=== PATIENT | male | born 1980 | race Two or more races ===

== ENCOUNTER 2017-10-11 17:55 | Emergency (ER) | payer BC ==
[~2017-10-11] VITALS: Ht 177.8 cm; Wt 95.3 kg
--- NOTE | 2017-10-11 18:20 | NUR ---
PATIENT BROUGHT IN BY HIS FRIENDS FOR 'PASSING OUT" SEVERAL TIMES TODAY AFTER DRINKING A "[employer] DRUG THAT STARTS WITH G" MIXED IN ALCOHOL. PATIENT IS NOT AWAKE BUT AROUSES TO TOUCH AND OPENS HIS EYES. PLACED ON A CONTINUOUS TECHNOLOGY DIRECTOR. 12 LEAD EKG DONE. BREATHING WAS IRREGULAR SO WE PLACED A NON REBREATHER ON HIM AND BREATHING HAS IMPROVED. SP02 > 98%. BP WNL.
--- NOTE | 2017-10-11 19:04 | NUR ---
PATIENT STILL SLEEPING BUT OPENS HIS EYES INTERMITTENTLY. ON A MONITOR. 3 MALE FRIENDS AT BEDSIDE. HANDOFF REPORT GIVEN TO ASTRID HIGGINS.
--- NOTE | 2017-10-11 19:10 | NUR ---
PATIENT IS NOT AWAKE, AROUSES TO TOUCH. BREATHIN IS EVEN AND UNLABORED. CONTINUES ON NON REBREATHER MASK SATURATION 98%. WILL MONITOR.
--- NOTE | 2017-10-11 19:39 | NUR ---
PATIENT IS AWAKE, ALERT AND ORIENTED. BREATHING IS EVEN AND UNLABORED ON ROOM AIR, SATURATION IS 98%. PATIENT IS SITTING UP ON EDGE OF BED, DENIES ANY SYMPTOMS AT THIS TIME.
[2017-10-11 19:42] VITALS: BP 128/89
--- NOTE | 2017-10-11 19:42 | NUR ---
Patient discharged to home in stable conditon. Written and verbal after care instructions given. Patient verbalizes understanding of instructions. PATIENT LEFT WITH STEADY GAIT.
== END 2017-10-11 19:43 | disposition home or self-care (01) ==
LOC: ER 17:55
DX: R55 Syncope and collapse (principal); I25.2 Old myocardial infarction
CPT/HCPCS: 93005; 99283; A4663

== ENCOUNTER 2017-12-31 21:55 | Inpatient (IN) | payer BC, OTHER ==
[~2017-12-31] VITALS: Ht 177.8 cm; Wt 90.7 kg
[2017-12-31 01:55] VITALS: BP 118/80
--- NOTE | 2017-12-31 22:13 | NUR ---
Dr Maurice speaking with DR Castro cardiology
[2017-12-31] MEDS ORDERED: AMIODARONE HCL IV 900 MG in IV DEXTROSE 5% 482 ML IV PRN (22:30)
[2017-12-31] MEDS ORDERED: AMIODARONE HCL IV 150 MG in IV DEXTROSE 5% 100 ML IV ONE (22:30)
[2017-12-31] MEDS ORDERED: AMIODARONE HCL 150 MG/3 ML VIAL IV ONE ×2 (22:34→22:36)
[2017-12-31 22:46] LABS: BASOPHILS # (AUTO) 0.1 K/uL (0.0-8.0); BASOPHILS % (AUTO) 0.9 % (0.0-2.0); EOSINOPHILS # (AUTO) 0.2 K/uL (0.0-0.7); EOSINOPHILS % (AUTO) 1.7 % (0.0-7.0); HEMATOCRIT 47.2 % (36.7-47.1); LYMPHOCYTES # (AUTO) 3.3 K/uL (20.0-40.0); LYMPHOCYTES % (AUTO) 30.7 % (20.5-51.5); MEAN CORPUSCULAR HEMOGLOBIN 31.7 uug (23.8-33.4); MEAN CORPUSCULAR HGB CONC 34 g/dL (32.5-36.3); MEAN CORPUSCULAR VOLUME 93.4 fL (73.0-96.2); MONOCYTES # (AUTO) 1.3 K/uL (2.0-10.0); MONOCYTES % (AUTO) 12.6 % (0.0-11.0); NEUTROPHILS # (AUTO) 5.7 K/uL (1.8-8.9); NEUTROPHILS % (AUTO) 54.1 % (38.5-71.5); PLATELET COUNT (AUTO) 409 K/uL (152-348); RED BLOOD CELL COUNT(AUTO) 5.05 MIL/uL (4.06-5.63); WHITE BLOOD COUNT (AUTO) 10.6 K/uL (3.6-10.2)
[2017-12-31 22:51] LABS: CREATININE 1.3 mg/dL (0.6-1.3); POTASSIUM 4.1 mmol/L (3.5-5.1)
--- NOTE | 2017-12-31 23:01 | NUR ---
AMIODARONE IV DRIP STARTED AT PROTOCOL SPECIFICATIONS
[2017-12-31 23:08] LABS: BILIRUBIN,TOTAL 0.6 mg/dL (0.2-1.0); TOTAL PROTEIN, SERUM 8.2 g/dL (6.4-8.2)
--- NOTE | 2017-12-31 23:19 | NUR ---
PT IN BED. PT IS AAOX4. PT IS CALM AND COOPERATIVE. AMIODARONE IV DRIP RUNNING. NO SIGNS OF DISTRESS WITNESSED AT THIS TIME.
[2017-12-31] MEDS ORDERED: LORAZEPAM 2 MG/1 ML VIAL IV ONE (23:47)
[2017-12-31] MEDS ORDERED: LORAZEPAM 2 MG/1 ML VIAL ONE (23:48)
[2018-01-01] VITALS (13 sets, daily range): BP systolic 94–126; BP diastolic 61–79
--- NOTE | 2018-01-01 00:25 | NUR ---
REPORT GIVEN TO CCU NURSEKAITY
[2018-01-01] MEDS ORDERED: IV 1/2NS 1000 ML 1,000 ML IV PRN (00:31)
[2018-01-01] MEDS ORDERED: Z GUARD REMEDY PASTE 57 GM TUBE TOP PRN (00:45)
[2018-01-01] MEDS ORDERED: ACETAMINOPHEN 325 MG TABLET PO PRN (00:45)
[2018-01-01] MEDS ORDERED: ONDANSETRON 4 MG/2 ML VIAL IV PRN (00:45)
[2018-01-01] MEDS ORDERED: HYDROCODONE/APAP 5-325MG TABLET PO PRN (00:45)
[2018-01-01] MEDS ORDERED: AMIODARONE HCL IV 900 MG in IV DEXTROSE 5% 482 ML IV PRN (00:45)
[2018-01-01] MEDS ORDERED: MAGNESIUM HYDROXIDE 30 ML LIQUID UDC PO PRN (00:45)
--- NOTE | 2018-01-01 01:15 | NUR ---
Pt. admitted to CCU, under care of Dr. IRWIN Belongs List completed
[2018-01-01 01:21] LABS: *BILIRUBIN,URIN NEGATIVE (NEGATIVE); *BLOOD, URINE NEGATIVE (NEGATIVE); *CLARITY,URINE CLEAR (CLEAR); *COLOR,URINE YELLOW (YELLOW); *KETONES,URINE NEGATIVE (NEGATIVE); *PROTEIN,URINE NEGATIVE (NEGATIVE); *UROBILINOGEN,URINE 0.2 E.U./dl (NORMAL); LEUKOCYTE ESTERASE ,URINE NEGATIVE (NEGATIVE); NITRITE, URINE NEGATIVE (NEGATIVE); PH,URINE 6.5 (5.0-8.0); UGLUCOSE NEGATIVE (NEGATIVE)
[2018-01-01 01:23] LABS: MUCUS,URINE FEW /LPF (0-FEW); RBC,URINE 0-3 /HPF (0-3); SQUAMOUS EPITHELIAL CELL,UR FEW /HPF (NONE SEEN); URINE AMORPHOUS URATE FEW /HPF; WBC,URINE 0-3 /HPF (0-3)
--- NOTE | 2018-01-01 01:50 | NUR ---
ADMITTED FROM ER VIA [facility] W/ ADMITTING DX OF WIDE COMPLEX TACHYCARDIA, DYSARTHYMIA. DENIES CHEST PAIN. C/O HEADACHE, MEDICATED W/ TYLENOL 650MG PO ORDERED. ON AMIODARONE DRIP @ 1MG/HR ON LAC. NOT IN ANY DISTRESS.
--- NOTE | 2018-01-01 05:00 | NUR ---
DECREASED AMIODARONE DRIP @ 0.5MG/HR. C-SCOPE SR W/ STABLE BP.
--- NOTE | 2018-01-01 10:30 | NUR ---
Attending physician in the unit to see and examine patient, full report given, orders to continue monitor received.
--- NOTE | 2018-01-01 11:54 | NUR ---
Dr. Mehta cardiology services in the unit to see and examine patient, full report given, orders for a follow up EKG stat order received.
[2018-01-01] MEDS ORDERED: PROP40TA7 PO (12:27)
--- NOTE | 2018-01-01 13:58 | NUR ---
Dcd instructions given to pt. Iv line dcd. patient refused to be escorted out via wheelchair. Pt. left room ambulatory AAOx4. accompanied by friend and cousin.
== END 2018-01-01 17:28 | disposition home or self-care (01) | DRG 201 ==
LOC: ER 21:56 → CCU 01-01 00:30
PROVIDERS: ADMIT Internal Medicine; ATTEND Internal Medicine
DX: I45.6 Pre-excitation syndrome (principal); I95.9 Hypotension, unspecified; D72.829 Elevated white blood cell count, unspecified; R74.0 Nonspecific elevation of levels of transaminase and lactic acid dehydrogenase [LDH]
CPT/HCPCS: 36415; 70030-TC; 71045; 83735; 85025; 85610; 93005; A4663; J0282; J2060; J3490; J7060